=== PATIENT | female | born 2000 | race Caucasian/White ===

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

== ENCOUNTER 2019-08-07 17:27 | Emergency (ER) | payer MEDICAID, OTHER ==
[~2019-08-07] VITALS: Ht 165.1 cm; Wt 86.6 kg
[2019-08-07 17:41] VITALS: BP 111/66
--- NOTE | 2019-08-07 17:41 | NUR ---
PT ARRVIED TO ED C/O ANXIETY X TODAY THIS AM. RATES PAIN LEVEL 3/10 AND DESCRIBES PAIN THROBBING AROUND THE RIGHT EYEBALL/HEAD. PT STATES SHES BEEN HAVING NAUSEA TODAY. DENEIS ANY V,D,FEVER. NO RESP DISTRESS. PT DESCRIBES A CHEST TIHGHTNESS SNESATION. S1S2 HEART SOUNDS PRESENT. VSS. NKA. PMH:ANXIETY, MIGRANE, MARIJUANA USE.
--- NOTE | 2019-08-07 18:40 | NUR ---
DR. THURMAN AT BEDSIDE EVALUATING PATIENT.
[2019-08-07 18:58] VITALS: BP 111/66
== END 2019-08-07 18:59 | disposition home or self-care (01) ==
LOC: MED 17:27
DX: F41.9 Anxiety disorder, unspecified (principal); R06.02 Shortness of breath; F12.90 Cannabis use, unspecified, uncomplicated
CPT/HCPCS: 99284

== ENCOUNTER 2020-03-16 07:44 | Emergency (ER) | payer OTHER ==
[~2020-03-16] VITALS: Ht 167.6 cm; Wt 81.6 kg
--- NOTE | 2020-03-16 07:45 | NUR ---
Patient ambulated to bed 11.
[2020-03-16 07:48] VITALS: BP 133/93
--- NOTE | 2020-03-16 07:52 | NUR ---
19 Y/O F C/C ANXIETY X THIS MORNING 0600 HOURS WHEN WOKE UP. PER PT UNABLE TO CONTROL HER ANXIETY AND CAME TO ER. PER PT USES MARIJUANA TO CONTROL ANXIETY. PT PRESENTS IN SLIGHT DISTRESS, FOLLOWS COMMANDS, A/OX4, DENIES USE OF ALCOHOL OR ILLICIT DRUGS. 100% RA. PLACED FULL FOWLERS. NKA. HX ANXIETY. NO RX. COMPLAINTS OF SLIGHT VOMITING. LS,BS WNL. SIDE RAIL X1.
--- NOTE | 2020-03-16 07:56 | NUR ---
ER-PA AT BEDSIDE
[2020-03-16] MEDS ORDERED: LORazepam 1 MG TAB PO ONE (08:05)
[2020-03-16 08:57] VITALS: BP 130/84
== END 2020-03-16 08:57 | disposition home or self-care (01) ==
LOC: MED 07:44
DX: F41.9 Anxiety disorder, unspecified (principal); F12.10 Cannabis abuse, uncomplicated
CPT/HCPCS: 99283

== ENCOUNTER 2020-04-11 09:37 | Emergency (ER) | payer OTHER ==
[~2020-04-11] VITALS: Ht 170.2 cm; Wt 84.8 kg
[2020-04-11 09:40] VITALS: BP 141/52
--- NOTE | 2020-04-11 09:50 | NUR ---
PT C/O MID BACK PAIN RADIATING TO UPPER AND LOWER BACK X 3 DAYS INCREASING LAST NIGHT, DENIES TRAUMA/INJURY. REPORTS HAD UTI LAST WEEK AND TREATED WITH PYRIDIUM ONLY FOR 3 DAYS. DENIES UTI SX AT THIS TIME. POSITIVE LEFT-SIDED CVAT. PT DENIES ANY FEVER, CP, SOB, OR COUGH AT THIS TIME; PATIENT STATES PAIN OF 7/10 AT THIS TIME; VSS; PATIENT POSITIONED FOR COMFORT; HOB ELEVATED; BEDRAILS UP X1; BED DOWN. ER MD MADE AWARE OF PT STATUS.
[2020-04-11] MEDS ORDERED: IBUPROFEN 400 MG TAB PO ONE (10:20)
[2020-04-11] MEDS ORDERED: ACETAMINOPHEN EXTRA STRENGTH 500 MG TAB PO ONE (10:20)
[2020-04-11 10:31] VITALS: BP 132/55
--- NOTE | 2020-04-11 10:31 | NUR ---
Patient discharged with v/s stable. Written and verbal after care instructions given and explained. Patient alert, oriented and verbalized understanding of instructions. Ambulatory with steady gait. All questions addressed prior to discharge. ID band removed. Patient advised to follow up with PMD. Rx of MOTRIN,FLEXERIL given. Patient educated on indication of medication including possible reaction and side effects. Opportunity to ask questions provided and answered.
== END 2020-04-11 10:31 | disposition home or self-care (01) ==
LOC: MED 09:37
DX: S39.012A Strain of muscle, fascia and tendon of lower back, initial encounter (principal); F41.9 Anxiety disorder, unspecified; X50.0XXA Overexertion from strenuous movement or load, initial encounter; Y93.89 Activity, other specified; Y92.89 Other specified places as the place of occurrence of the external cause; Y99.8 Other external cause status
CPT/HCPCS: 81002; 81025; 99283

== ENCOUNTER 2022-10-31 00:19 | Emergency (ER) | payer OTHER ==
[~2022-10-31] VITALS: Ht 163.8 cm; Wt 88.5 kg
[2022-10-31 00:26] VITALS: BP 151/99
[2022-10-31] MEDS ORDERED: KETOROLAC 30 MG/ML VIAL IVP ONE (00:30)
[2022-10-31] MEDS ORDERED: NACL 0.9% 1,000 ML IV SCH (00:30)
[2022-10-31] MEDS ORDERED: ONDANSETRON 4 MG/2 ML VIAL IVP ONE (00:30)
--- NOTE | 2022-10-31 00:32 | NUR ---
PT TAKEN TO BED 1
--- NOTE | 2022-10-31 01:04 | NUR ---
Patient resting in bed, A/Ox4, chest rise and fall symmetrical, no s/s of distress.
[2022-10-31 01:06] LABS: BASOPHILS # (AUTO) 0.2 K/uL (0.00-0.22); MEAN CORPUSCULAR VOLUME 81.7 fL (80-94); MONOCYTES # (AUTO) 0.2 K/uL (0.8-1.0); WHITE BLOOD COUNT (AUTO) 14.9 K/uL (4.8-10.8)
[2022-10-31 01:13] LABS: BASOPHILS % (AUTO) 1.2 % (0.0-2.0); EOSINOPHILS % (AUTO) 0.2 % (0.0-4.0); HEMATOCRIT 42.3 % (36-48); HEMOGLOBIN 14.7 g/dL (12.0-16.0); LYMPHOCYTES # (AUTO) 2.1 K/uL (2.5-16.5); MEAN CORPUSCULAR HEMOGLOBIN 28 pg (27-31); MEAN CORPUSCULAR HGB CONC 35 g/dL (33-37); MONOCYTES % (AUTO) 1.3 % (1.7-9.3); NEUTROPHILS # (AUTO) 12.4 K/uL (1.8-7.7); PLATELET COUNT (AUTO) 433 K/uL (140-450); RED BLOOD CELL COUNT(AUTO) 5.18 MIL/uL (4.20-5.40); RED CELL DISTRIBUTION WIDTH 12.9 % (11.6-13.7)
[2022-10-31 01:21] LABS: NEUTROPHILS % (AUTO) 83.3 % (42.2-75.2)
[2022-10-31 01:24] LABS: ALBUMIN 4.8 g/dL (3.4-5.0); ANION GAP 18.8 (8-16); CARBON DIOXIDE 22.7 mmol/L (21-32); CREATININE 0.8 mg/dL (0.6-1.3); POTASSIUM 3.5 mmol/L (3.5-5.1); TOTAL BILIRUBIN 0.3 mg/dL (0.0-1.0)
[2022-10-31 02:33] LABS: APPEARANCE,URINE CLEAR (CLEAR); BILIRUBIN,URINE NEGATIVE (NEGATIVE); BLOOD, URINE TRACE-I (NEGATIVE); COLOR,URINE YELLOW (YELLOW); LEUKOCYTE ESTERASE ,URINE NEGATIVE (NEGATIVE); NITRITE, URINE NEGATIVE (NEGATIVE); PH,URINE 8.5 (5.0-9.0); UGLUCOSE NEGATIVE (NEGATIVE)
[2022-10-31] MEDS ORDERED: HALOPERIDOL IM 5 MG/ML VIAL IVP ONE (02:50)
[2022-10-31] MEDS ORDERED: diphenhydrAMINE 50 MG/ML VIAL IVP ONE (02:50)
[2022-10-31 02:54] LABS: RBC,URINE 0-5 /HPF (0-5); WBC,URINE 0-5 /HPF (0-5)
--- NOTE | 2022-10-31 03:00 | NUR ---
Patient resting in bed, A/Ox4, chest rise and fall symmetrical, no c/o pain or s/s of distress.
[2022-10-31] MEDS ORDERED: cefTRIAXone 1,000 MG VIAL ONE (04:33)
--- NOTE | 2022-10-31 04:48 | NUR ---
Patient resting in bed, A/Ox4, chest rise and fall symmetrical, no c/o pain or s/s of distress.
[2022-10-31] MEDS ORDERED: NAPR-54 PO (06:08)
[2022-10-31 06:14] VITALS: BP 105/71
[2022-10-31] MEDS ORDERED: ceFAZolin 2,000 MG VIAL ONE (14:10)
== END 2022-10-31 06:14 | disposition home or self-care (01) ==
LOC: MED 00:19
DX: R10.9 Unspecified abdominal pain (principal); Z20.822 Contact with and (suspected) exposure to COVID-19; R11.10 Vomiting, unspecified
CPT/HCPCS: 36415; 74176; 76856; 80053; 81001; 81025; 85025; 87086; 87426; 96361; 96365; 96375; 99285; J0696; J1200; J1630; J1885; J2405; J7030; Q0092

== ENCOUNTER 2022-10-31 12:31 | Inpatient (IN) | payer OTHER ==
[~2022-10-31] VITALS: Ht 165.1 cm; Wt 60.8 kg
[~2022-10-31 12:31] MED LIST: HYDROmorphone PFS 2 MG/ML SYR ONE; LABETALOL 20 MG/4 ML VIAL IVP ONE; NAPR-54 PO; ONDANSETRON 4 MG/2 ML VIAL ONE; PROPOFOL 200 MG/20 ML VIAL IV ONE; SUCCINYLCHOLINE CHLORIDE 200 MG/10 ML VIAL IVP ONE; fentaNYL citrate 0.05 MG/ML - 50mL vial IV ONE; hydrALAZINE 20 MG/ML VIAL ONE
[2022-10-31 12:39] VITALS: BP 122/87
[2022-10-31] MEDS ORDERED: ONDANSETRON 4 MG/2 ML VIAL IVP ONE (12:55)
[2022-10-31] MEDS ORDERED: MORPHINE SULFATE 4 MG/ML SYR IVP ONE (12:55)
[2022-10-31] MEDS ORDERED: NACL 0.9% 1,000 ML IV ONE (12:55)
[2022-10-31] MEDS ORDERED: MAG SULF 2000 MG/WATER PREMIX 50 ML IV PRN (13:25)
[2022-10-31] MEDS ORDERED: POTASSIUM CHLORIDE 10 MEQ TABER PO PRN (13:25)
[2022-10-31] MEDS ORDERED: HYDROcodone/APAP 5/325 MG 1 TAB TAB PO PRN (13:25)
[2022-10-31] MEDS ORDERED: KCL 20 MEQ/WATER INJ PREMIX 200 ML IV PRN (13:25)
[2022-10-31] MEDS ORDERED: ONDANSETRON 4 MG/2 ML VIAL IVP PRN ×2 (13:25→16:15)
[2022-10-31] MEDS ORDERED: ACETAMINOPHEN 325 MG TAB PO PRN (13:25)
[2022-10-31] MEDS: NACL 0.9% 1,000 ML IV SCH ×2 (13:25→20:26)
[2022-10-31 13:55] LABS: PROTHROMBIN TIME 10.7 secs (10.8-13.4)
--- NOTE | 2022-10-31 13:57 | NUR ---
PT TAKEN TO OR AT THIS TIME. BELONGINGS SENT WITH PT.
[2022-10-31] MEDS ORDERED: fentaNYL citrate 0.05 MG/ML VIAL ONE (14:35)
[2022-10-31] MEDS ORDERED: HYDROmorphone PFS 2 MG/ML SYR ONE ×3 (14:49→16:38)
[2022-10-31] MEDS ORDERED: KETOROLAC 30 MG/ML VIAL ONE (14:51)
[2022-10-31] MEDS ORDERED: PROPOFOL 200 MG/20 ML VIAL IV ONE (14:51)
[2022-10-31] MEDS ORDERED: ONDANSETRON 4 MG/2 ML VIAL ONE (14:51)
[2022-10-31] MEDS ORDERED: SUCCINYLCHOLINE CHLORIDE 200 MG/10 ML VIAL IVP ONE (14:51)
[2022-10-31] MEDS ORDERED: ROCURONIUM 50 MG/5 ML VIAL IV ONE ×2 (14:51→15:24)
[2022-10-31] MEDS ORDERED: DEXAMETHASONE 4 MG/ML VIAL ONE (14:52)
--- NOTE | 2022-10-31 15:38 | NUR ---
PATIENT HAS BEEN SCREENED AND CATEGORIZED LOW NUTRITION RISK. PATIENT WILL BE SEEN WITHIN 7 DAYS OF ADMISSION. 11/07/22 REVIEWED BY CHIKI RIVAS RD
[2022-10-31] MEDS ORDERED: LABETALOL 100 MG/20 ML VIAL ONE (15:54)
[2022-10-31] MEDS ORDERED: SUGAMMADEX SODIUM 200 MG/2 ML VIAL IV ONE (15:54)
[2022-10-31] MEDS ORDERED: hydrALAZINE 20 MG/ML VIAL ONE (16:17)
[2022-10-31] MEDS: HYDROmorphone 1 MG/ML AMP IVP PRN ×4 (16:38→17:08)
[2022-10-31] MEDS ORDERED: oxyCODONE/APAP 5/325 MG 1 TAB TAB PO PRN (16:40)
--- NOTE | 2022-10-31 17:30 | NUR ---
ADMISSION OF A 22 YEAR OLD FEMALE UNDER THE CARE OF DOCTOR DINH FOR OVARIAN TORSION STATUS POST LEFT FALLOPIAN TUBE REMOVAL, CYST REMOVAL AND LEFT OVARY REMOVAL WITH DOCTOR FERGUSON.
[2022-10-31 18:09] VITALS: BP 113/69
--- NOTE | 2022-10-31 19:05 | NUR ---
RECEIVED PATIENT LYING ON THE BED, IS ALERT AND ORIENTED, NO C/O PAIN AT THIS TIME UPON ASSESSMENT, NO SIGNS OF DISTRESS NOTED, FAMILY AT BEDSIDE. CALL LIGHT WITHIN REACH.
[2022-10-31 20:00] VITALS: BP 114/73
--- NOTE | 2022-10-31 20:26 | NUR ---
NEW NS STARTED @80ML/HR ON LEFT AC, LINE PATENT AND INTACT. PATIENT DENIES PAIN AT THIS TIME. ALL SAFETY MEASURES IN PLACE. PATIENT HAS [employer] DRESSING ON MID ABDOMEN. WILL CONTINUE TO MONITOR THE PATIENT.
--- NOTE | 2022-10-31 23:08 | NUR ---
PATIENT IS ASLEEP, BREATHING EVEN AND NON LABORED, NO SIGNS OF PAIN/DISCOMFORT NOTED. CALL LIGHT WITHIN REACH.
[2022-10-31] MEDS: oxyCODONE/APAP 5/325 MG 1 TAB TAB PO PRN (23:48)
[2022-11-01 04:00] VITALS: BP 131/67
[2022-11-01] MEDS: MORPHINE SULFATE 4 MG/ML SYR IVP PRN ×4 (04:41→21:46)
--- NOTE | 2022-11-01 04:41 | NUR ---
PATIENT C/O 8/10 PAIN ON MID ABDOMEN SURGICAL SITE, PRN MORPHINE GIVEN ORDERED. BP 131/67. WILL CONTINUE TO MONITOR THE PATIENT.
[2022-11-01] MEDS: LORazepam 0.5 MG TAB PO PRN ×3 (05:48→21:39)
--- NOTE | 2022-11-01 07:19 | NUR ---
ENDORSED PATIENT TO DAY NURSE FOR CONTINUITY OF CARE. NEEDS MET THROUGHOUT THE SHIFT. PATIENT IN STABLE CONDITION.
[2022-11-01 08:00] VITALS: BP 139/90
[2022-11-01] MEDS: oxyCODONE/APAP 5/325 MG 1 TAB TAB PO PRN (10:23)
--- NOTE | 2022-11-01 10:50 | NUR ---
DC PLANNING [facility] MET WITH PT AT BEDSIDE TO COMPLETE ASSESSMENT. PT ALERT AND ORIENTED AND ABLE TO PROVIDE ALL OF HER OWN INFORMATION. PT RESIDES IN A SINGLE STORY HOME WITH HER GRANDFATHER AND RONNIE, AT [address] [facility] [id number]. PT IDENTIFIED RONNIE LLAMAS, EMERGENCY CONTACT AND DECLINED TO ADD AN ADDITIONAL EC. PT REPORTS LAST VISIT WITH PCP IN 2015. SW SPOKE TO PT ABOUT IMPORTANCE OF FOLLOW UP CARE, PT RECEPTIVE AND PROVIDED SW WITH PERMISSION TO SCHEDULE FOLLOW UP APPT WITH PCP UPON DC. PT DENIES TAKING MEDICATION AT THIS TIME HOWEVER REPORTS RECEIVING MEDICATION FROM [facility] [employer] ON [address] [place], WHEN NEEDED. PT REPORTS MH HX OF BIPOLAR DO AND REPORTS NOT TAKING MEDICATION OR MEETING W/ THERAPIST TO AID IN SX. PT ACCEPTED MENTAL HEALTH RESOURCES OFFERED BY [facility]. PT REPORTS HX OF MARIJUANA USE. PT REPORTS SMOKING MARIJUANA EVERYDAY, 2X A DAY. PT REPORTS SMOKING FOR MEDICINAL REASONS AND DENIES USE IS PROBLEMATIC OR INTERFERES WITH DAILY FX. PT DECLINED SUBSTANCE USE RESOURCES OFFERED BY [facility]. PT REPORTS ADEQUATE FOOD IN THE HOME AND REPOTS RECEVING [employer] BENEFITS OF ROUGHLY 200/MONTHLY. PT REPORTS DC PLAN IS TO RETURN HOME WITH RONNIE PROVIDING TRANSPORTATION, WHEN MEDICALLY STABLE. Addendum: 11/02/22 at 0900 by Ole MORLEY Amended: Links added.
[2022-11-01] MEDS: HYDROmorphone 1 MG/ML AMP IVP PRN (11:27)
--- NOTE | 2022-11-01 12:47 | NUR ---
PATIENT AMBULATING IN HALLWAY, 25 YARDS.
[2022-11-01] MEDS: NACL 0.9% 1,000 ML IV SCH (14:14)
--- NOTE | 2022-11-01 15:22 | NUR ---
PATIENT VOIDING WITHOUT DIFFICULTY AFTER AMBULATING TO TOILET.
--- NOTE | 2022-11-01 15:31 | NUR ---
PATIENT AMBULATING IN HALLWAY, 75 YARDS.
[2022-11-01 16:00] VITALS: BP 134/84
[2022-11-02] MEDS: MORPHINE SULFATE 4 MG/ML SYR IVP PRN (04:29)
--- NOTE | 2022-11-02 04:49 | NUR ---
PT MEDICATED FOR PAIN - 8/10 - W MORPHINE 4MG ORDERED.
--- NOTE | 2022-11-02 06:51 | NUR ---
PT REFUSED A.M. LAB DRAWS THIS MORNING. SPOKE W PT BUT SHE REFUSED B/C SHE DOES NOT WANT TO BE "POKED".
--- NOTE | 2022-11-02 06:54 | NUR ---
PT REQUESTING ABDOMINAL BINDER. WILL ENDORSE TO DAY RN FOR F/U (ORDERING).
[2022-11-02 08:00] VITALS: BP 141/90
--- NOTE | 2022-11-02 08:31 | NUR ---
MEDICATED PT WITH PRN PERCOCET FOR ABDOMINAL PAIN 04/18.
[2022-11-02] MEDS ORDERED: SIMETHICONE 80 MG TAB.CHEW PO SCH (10:00)
[2022-11-02] MEDS ORDERED: IBUP-2230 PO (13:14)
--- NOTE | 2022-11-02 15:05 | NUR ---
DISCHARGE TO HOME WITH A COPY OF DISCHARGE INSTRUCTION AND ALL BELONGINGS. ID BRACELET TAKEN OFF. INTACT 20 GAUGE INTRAVENOUS CATHETER REMOVAL FROM LEFT ARM. PATIENT HAS INFORMATION ON FOLLOW UP AND DISCHARGE MEDICATION RECONCILIATION.
== END 2022-11-02 15:00 | disposition home or self-care (01) | DRG 513 ==
LOC: MED 12:31 → MTU 13:29 → OBSVTOIN 13:29
PROVIDERS: ADMIT Internal Medicine; ATTEND Internal Medicine
PROC: 0UB10ZZ Excision of Left Ovary, Open Approach (ICD-10-PCS; 2022-10-31)
PROC: 0UB60ZZ Excision of Left Fallopian Tube, Open Approach (ICD-10-PCS; principal; 2022-10-31 14:00)
DX: N83.512 Torsion of left ovary and ovarian pedicle (principal); E66.9 Obesity, unspecified; N83.202 Unspecified ovarian cyst, left side; F12.90 Cannabis use, unspecified, uncomplicated; Z68.22 Body mass index [BMI] 22.0-22.9, adult
CPT/HCPCS: 36415; 84703; 85610; 85730; 86886; 86900; 86901; 87081; 96374; 96375; 99285; J0330; J0360; J1100; J1170; J1885; J2270; J2405; J2704; J3010; J3490